=== PATIENT | female | born 1965 | race Caucasian/White ===

== ENCOUNTER 2016-08-19 07:54 | Inpatient (IN) | payer OTHER ==
[~2016-08-19] VITALS: Ht 160 cm; Wt 86.4 kg
[~2016-08-19 07:54] MED LIST: ALBU0.212 IH; ALBU8.5H IH; BECL8.7A5 IH; BUSP10TA23 PO; CALC-1174 PO; DICL50TA9 PO; MULT-1203 PO; OMEP20 PO; RINGERS SOLUTION,LACTATED 1,000 ML IV ONE; VIST50 PO
[2016-08-19] MEDS ORDERED: RINGERS SOLUTION,LACTATED 1,000 ML IV ONE (08:30)
[2016-08-19] MEDS ORDERED: FentaNYL CITRATE-PF 100 MCG/2 ML VIAL ED ONE (09:00)
[2016-08-19] MEDS ORDERED: MIDAZOLAM HCL 2 MG/2 ML VIAL IVP ONE ×2 (09:00)
[2016-08-19] MEDS ORDERED: KETAMINE HCL 50 MG/ML 10 ML VIAL IVP ONE (09:00)
[2016-08-19] MEDS ORDERED: FentaNYL CITRATE-PF 100 MCG/2 ML VIAL IVP ONE (09:00)
[2016-08-19] MEDS ORDERED: ACETAMINOPHEN 1000 MG/ISO-OSM 100 ML IV ONE ×2 (09:40→09:45)
[2016-08-19] MEDS ORDERED: CELECOXIB 200 MG CAPSULE ONE (09:40)
[2016-08-19] MEDS ORDERED: IPRATROPIUM BROMIDE 0.5 MG/2.5 ML NEB SOLUTION NEB PRN (09:45)
[2016-08-19] MEDS ORDERED: MEPERIDINE-PF 25 MG/ML SYRINGE IVP PRN ×2 (09:45)
[2016-08-19] MEDS ORDERED: FentaNYL CITRATE-PF 100 MCG/2 ML VIAL IVP PRN ×2 (09:45)
[2016-08-19] MEDS ORDERED: HYDROmorphone 2 MG/ML SYRINGE IVP PRN ×2 (09:45)
[2016-08-19] MEDS ORDERED: ALBUTEROL SULFATE 2.5 MG/0.5 ML NEB SOLUTION NEB PRN (09:45)
[2016-08-19] MEDS ORDERED: CELECOXIB 200 MG CAPSULE PO ONE (09:45)
[2016-08-19] MEDS ORDERED: ALBUTEROL SULFATE 2.5 MG/0.5 ML NEB SOLUTION NEB ONE (10:00)
[2016-08-19] MEDS ORDERED: IPRATROPIUM BROMIDE 0.5 MG/2.5 ML NEB SOLUTION NEB ONE (10:00)
[2016-08-19] MEDS ORDERED: BACITRACIN 50,000 UNITS/VIAL ONE (10:08)
[2016-08-19] MEDS ORDERED: SODIUM CL IRRIG SOLN BAG 3,000 ML IRRIG ONE (10:08)
[2016-08-19] MEDS ORDERED: TRANEXAMIC ACID 1,000 MG in DEXTROSE 5%-WATER 50 ML IV ONE (10:15)
[2016-08-19] MEDS ORDERED: DiphenhydrAMINE HCL 50 MG/ML VIAL IVP ONE (12:00)
[2016-08-19] MEDS ORDERED: PROPOFOL 1% 20 ML VIAL IVP ONE (12:00)
[2016-08-19] MEDS ORDERED: LIDOCAINE HCL/PF 2% 5 ML VIAL INJ ONE (12:00)
[2016-08-19] MEDS ORDERED: BUPIVACAINE LIPOSOME/PF 1.3%-13.3MG/ML SUSPENSION 20 ML VIAL INJ ONE (12:00)
[2016-08-19] MEDS ORDERED: ONDANSETRON HCL 4 MG/2 ML VIAL IVP ONE (12:00)
[2016-08-19] MEDS ORDERED: METOCLOPRAMIDE HCL 5 MG/ML 2 ML VIAL IVP ONE (12:00)
[2016-08-19] MEDS: SODIUM CHLORIDE 0.9% 1,000 ML IV SCH (12:10)
[2016-08-19] MEDS ORDERED: MAG HYDROX/AL HYDROX/SIMETH 30 ML SUSP UDCUP PO PRN (12:15)
[2016-08-19] MEDS ORDERED: DiphenhydrAMINE HCL 50 MG/ML VIAL IVP PRN (12:15)
[2016-08-19] MEDS ORDERED: BISACODYL 10 MG RECTAL RECTAL SUPPOSITORY PR PRN (12:15)
[2016-08-19] MEDS ORDERED: BENZOCAINE/MENTHOL LOZENGE [8 LOZENGES/PACKET] PO PRN (12:15)
[2016-08-19] MEDS ORDERED: ONDANSETRON HCL 4 MG/2 ML VIAL IVP PRN (12:15)
[2016-08-19 14:20] VITALS: BP 111/62
[2016-08-19] MEDS ORDERED: PNEUMOCOCCAL VACCINE POLYVALENT 0.5 ML VIAL [PPSV23] IM ONE (15:15)
[2016-08-19] MEDS: HYDROmorphone 2 MG/ML SYRINGE IVP PRN ×2 (15:28→20:06)
[2016-08-19] MEDS: CYCLOBENZAPRINE HCL 10 MG TABLET PO SCH ×2 (15:29→20:07)
[2016-08-19 15:53] VITALS: BP 105/58
[2016-08-19] MEDS: BusPIRone HCL 10 MG TABLET PO SCH ×2 (16:48→20:06)
[2016-08-19] MEDS: ALBUTEROL SULFATE HFA 90 MCG/PUFF 8 GM INHALER IH PRN ×2 (18:07→22:25)
[2016-08-19] MEDS: ACETAMINOPHEN 1000 MG/ISO-OSM 100 ML IV SCH (18:10)
[2016-08-19] MEDS: CeFAZolin 1 GM/DEXTROSE 50 ML IV SCH (18:13)
[2016-08-19 19:30] VITALS: BP 117/75
[2016-08-19] MEDS: OXYGEN THERAPY IH SCH ×3 (20:00)
[2016-08-19] MEDS: HydrOXYzine PAMOATE 50 MG CAPSULE PO SCH (20:06)
[2016-08-19] MEDS: DOCUSATE SODIUM 100 MG CAPSULE PO SCH (20:06)
[2016-08-19] MEDS: CELECOXIB 100 MG CAPSULE PO SCH (20:07)
[2016-08-19] MEDS: BECLOMETHASONE DIPR 80 MCG/PUFF 8.7 GM INHALER IH SCH (20:13)
[2016-08-19 23:55] VITALS: BP 104/59
[2016-08-20] MEDS: HYDROmorphone 2 MG/ML SYRINGE IVP PRN ×4 (01:11→16:56)
[2016-08-20] MEDS: ACETAMINOPHEN 1000 MG/ISO-OSM 100 ML IV SCH ×3 (01:22→17:54)
[2016-08-20] MEDS: CeFAZolin 1 GM/DEXTROSE 50 ML IV SCH (01:52)
[2016-08-20] MEDS: ALBUTEROL SULFATE HFA 90 MCG/PUFF 8 GM INHALER IH PRN ×2 (04:26→09:13)
[2016-08-20 04:31] VITALS: BP 110/74
[2016-08-20 06:01] LABS: BASOPHILS # (AUTO) 0.02 K/uL (0.00-0.20); BASOPHILS % (AUTO) 0.3 % (0.0-2.0); EOSINOPHILS # (AUTO) 0.11 K/uL (0.00-0.70); EOSINOPHILS % (AUTO) 1.23 % (1.0-6.0); HEMOGLOBIN 13.4 g/dL (12.0-16.0); LYMPHOCYTES # (AUTO) 2.2 K/uL (1.0-4.8); LYMPHOCYTES % (AUTO) 23.8 % (22.0-44.0); MEAN CORPUSCULAR HGB CONC 34.3 G/dL (31.0-37.0); MEAN CORPUSCULAR VOLUME 90 fL (80-100); MONOCYTES # (AUTO) 0.5 K/uL (0.1-1.0); MONOCYTES % (AUTO) 5.4 % (2.0-9.0); NEUTROPHILS # (AUTO) 6.4 K/uL (1.8-7.7); NEUTROPHILS % (AUTO) 69.3 % (40.0-70.0); PLATELET COUNT (AUTO) 250 K/uL (150-450); RED BLOOD CELL COUNT(AUTO) 4.32 MIL/uL (4.00-5.20); RED CELL DISTRIBUTION WIDTH 14.6 % (11.5-14.5); WHITE BLOOD COUNT (AUTO) 9.2 K/uL (4.5-11.0)
[2016-08-20 06:24] LABS: ANION GAP 6 mmol/L (8-16); CALCIUM, TOTAL 8.8 mg/dL (8.8-10.5); CARBON DIOXIDE 30 mmol/L (22-29); CHLORIDE 101 mmol/L (98-107); CREATININE 0.92 mg/dL (0.60-1.30); GLOMERULAR FILTR. RATE CALC > 60 mL/min (>60); POTASSIUM 4.1 mmol/L (3.5-5.1); SODIUM SERUM 137 mmol/L (136-145); UREA NITROGEN, BLOOD 11 mg/dL (7-18)
[2016-08-20 07:30] VITALS: BP 119/74
[2016-08-20] MEDS: BusPIRone HCL 10 MG TABLET PO SCH ×3 (08:49→20:38)
[2016-08-20] MEDS: BECLOMETHASONE DIPR 80 MCG/PUFF 8.7 GM INHALER IH SCH ×2 (08:49→21:42)
[2016-08-20] MEDS: OMEPRAZOLE 20 MG CAPSULE PO SCH (08:50)
[2016-08-20] MEDS: CYCLOBENZAPRINE HCL 10 MG TABLET PO SCH ×4 (08:50→20:34)
[2016-08-20] MEDS: CELECOXIB 100 MG CAPSULE PO SCH ×2 (08:50→20:34)
[2016-08-20] MEDS: DOCUSATE SODIUM 100 MG CAPSULE PO SCH ×2 (08:50→20:33)
[2016-08-20] MEDS: BISACODYL 5 MG EC TABLET PO SCH (09:06)
[2016-08-20] MEDS: CALCIUM OYSTER SHELL 250 MG-VIT D3 125 UNITS TABLET PO SCH (10:07)
[2016-08-20 11:30] VITALS: BP 120/74
[2016-08-20] MEDS: ALBUTEROL SULFATE 2.5 MG/0.5 ML NEB SOLUTION NEB SCH ×2 (13:48→20:07)
[2016-08-20] MEDS: IPRATROPIUM BROMIDE 0.5 MG/2.5 ML NEB SOLUTION NEB SCH ×2 (13:48→20:07)
[2016-08-20] MEDS: SODIUM CHLORIDE 0.9% 1,000 ML IV SCH ×2 (13:58→16:57)
[2016-08-20 15:45] VITALS: BP 110/61
[2016-08-20] MEDS ORDERED: RIVAROXABAN 10 MG TABLET PO SCH (17:30)
[2016-08-20 19:41] VITALS: BP 114/54
[2016-08-20] MEDS: OXYGEN THERAPY IH SCH ×3 (20:00)
[2016-08-20] MEDS: HydrOXYzine PAMOATE 50 MG CAPSULE PO SCH (20:33)
[2016-08-21 00:12] VITALS: BP 103/65
[2016-08-21] MEDS: HYDROmorphone 2 MG/ML SYRINGE IVP PRN ×2 (00:19→06:21)
[2016-08-21] MEDS: ALBUTEROL SULFATE 2.5 MG/0.5 ML NEB SOLUTION NEB SCH ×3 (02:00→13:36)
[2016-08-21] MEDS: IPRATROPIUM BROMIDE 0.5 MG/2.5 ML NEB SOLUTION NEB SCH ×3 (02:00→13:36)
[2016-08-21 04:56] VITALS: BP 105/72
[2016-08-21 06:33] LABS: BASOPHILS % (AUTO) 0.3 % (0.0-2.0); EOSINOPHILS % (AUTO) 1.9 % (1.0-6.0); HEMATOCRIT 38.2 % (36-46); HEMOGLOBIN 13.1 g/dL (12.0-16.0); LYMPHOCYTES # (AUTO) 1.9 K/uL (1.0-4.8); LYMPHOCYTES % (AUTO) 22.7 % (22.0-44.0); MEAN CORPUSCULAR HEMOGLOBIN 31.4 pg (26.0-34.0); MEAN CORPUSCULAR HGB CONC 34.2 G/dL (31.0-37.0); MEAN CORPUSCULAR VOLUME 92 fL (80-100); MONOCYTES # (AUTO) 0.6 K/uL (0.1-1.0); MONOCYTES % (AUTO) 7.2 % (2.0-9.0); NEUTROPHILS # (AUTO) 5.7 K/uL (1.8-7.7); NEUTROPHILS % (AUTO) 67.9 % (40.0-70.0); PLATELET COUNT (AUTO) 233 K/uL (150-450); RED BLOOD CELL COUNT(AUTO) 4.16 MIL/uL (4.00-5.20); RED CELL DISTRIBUTION WIDTH 14.2 % (11.5-14.5); WHITE BLOOD COUNT (AUTO) 8.4 K/uL (4.5-11.0)
[2016-08-21] MEDS: OXYGEN THERAPY IH SCH ×3 (08:00)
[2016-08-21 08:30] VITALS: BP 124/65
[2016-08-21] MEDS: CELECOXIB 100 MG CAPSULE PO SCH (08:47)
[2016-08-21] MEDS: BISACODYL 5 MG EC TABLET PO SCH (08:47)
[2016-08-21] MEDS: DOCUSATE SODIUM 100 MG CAPSULE PO SCH (08:47)
[2016-08-21] MEDS: BusPIRone HCL 10 MG TABLET PO SCH ×2 (08:47→15:39)
[2016-08-21] MEDS: OMEPRAZOLE 20 MG CAPSULE PO SCH (08:47)
[2016-08-21] MEDS: CALCIUM OYSTER SHELL 250 MG-VIT D3 125 UNITS TABLET PO SCH (08:48)
[2016-08-21] MEDS: OxyCODONE HCL/ACETAMINOPHEN 10-325 MG TABLET PO PRN ×2 (08:48→14:08)
[2016-08-21] MEDS: CYCLOBENZAPRINE HCL 10 MG TABLET PO SCH ×3 (08:49→15:39)
[2016-08-21] MEDS: BECLOMETHASONE DIPR 80 MCG/PUFF 8.7 GM INHALER IH SCH (08:50)
[2016-08-21 11:43] VITALS: BP 125/70
[2016-08-21 16:00] VITALS: BP 106/48
[2016-11-12] MEDS ORDERED: HYDR-3965 PO (10:40)
== END 2016-08-21 16:40 | DRG 301 ==
LOC: 4E 07:54
PROVIDERS: ADMIT Orthopaedic Surgery; ATTEND Orthopaedic Surgery
PROC: 0SRB0JZ Replacement of Left Hip Joint with Synthetic Substitute, Open Approach (ICD-10-PCS; principal; 2016-08-19 10:00)
DX: M16.12 Unilateral primary osteoarthritis, left hip (principal); I10 Essential (primary) hypertension; J45.909 Unspecified asthma, uncomplicated; M81.0 Age-related osteoporosis without current pathological fracture; K21.9 Gastro-esophageal reflux disease without esophagitis; I45.10 Unspecified right bundle-branch block; Z79.899 Other long term (current) drug therapy; Z98.890 Other specified postprocedural states; Z90.710 Acquired absence of both cervix and uterus
CPT/HCPCS: 72170; 73501; 87081; 88300; 90471; 93005; 94640; 97116; 97162; 97165; 97530; 97535; C9290; J0131; J0690; J1170; J1200; J2250; J2405; J2704; J2765; J3010; J3490; J3535; J7030; J7060; J7120

== ENCOUNTER 2016-11-13 06:09 | Day surgery (SDC) | payer OTHER ==
[~2016-11-13 06:09] MED LIST changes: +CYCLOPENTOLATE HCL 1% 2 ML OPHTHALMIC SOLUTION ONE; +FLURBIPROFEN SODIUM 0.03% 2.5 ML OPHTHALMIC SOLUTION ONE; +FentaNYL CITRATE-PF 100 MCG/2 ML VIAL IVP ONE; +HYDR-3965 PO; +MIDAZOLAM HCL 2 MG/2 ML VIAL IVP ONE; +PHENYLEPHRINE HCL 2.5% 2 ML OPHTHALMIC SOLUTION ONE; -RINGERS SOLUTION,LACTATED 1,000 ML IV ONE; +RINGERS SOLUTION,LACTATED 500 ML IV ONE; +TROPICAMIDE 1% 2 ML OPHTHALMIC SOLUTION ONE
[2016-11-13] MEDS ORDERED: RINGERS SOLUTION,LACTATED 500 ML IV ONE (06:30)
[2016-11-13] MEDS: TROPICAMIDE 1% 2 ML OPHTHALMIC SOLUTION OD SCH ×3 (07:00→07:16)
[2016-11-13] MEDS: PHENYLEPHRINE HCL 2.5% 2 ML OPHTHALMIC SOLUTION OD SCH ×3 (07:01→07:15)
[2016-11-13] MEDS: CYCLOPENTOLATE HCL 1% 2 ML OPHTHALMIC SOLUTION OD SCH ×3 (07:01→07:15)
[2016-11-13] MEDS: FLURBIPROFEN SODIUM 0.03% 2.5 ML OPHTHALMIC SOLUTION OD SCH ×3 (07:01→07:15)
[2016-11-13 07:07] LABS: GLUCOSE,POINT OF CARE 162 MG/DL (70-110)
[2016-11-13] MEDS ORDERED: HYALURONATE SODIUM 12 MG/ML 0.8 ML SYRINGE IO ONE (21:49)
[2016-11-13] MEDS ORDERED: LIDOCAINE HCL/PF 1% 2 ML VIAL IM ONE (21:49)
[2016-11-13] MEDS ORDERED: ACETYLCHOLINE CHLORIDE 1 EA INTRAOCULAR SOLUTION KIT IO ONE (21:49)
[2016-11-13] MEDS ORDERED: HYALURONATE SOD/CHONDROITIN SOD 0.5 ML VIAL IO ONE (21:49)
[2016-11-13] MEDS ORDERED: POVIDONE-IODINE 10% 15 ML SOLUTION UD TP ONE (21:49)
[2016-11-13] MEDS ORDERED: NEOMYCIN/POLYMYXIN B/DEXAMETH 3.5 GM OPHTHALMIC OINTMENT OD ONE (21:49)
[2016-11-13] MEDS ORDERED: TETRACAINE HCL VISCOUS 0.5% 0.6 ML OPHTHALMIC SOLUTION OD ONE (21:49)
[2016-11-13] MEDS ORDERED: TETRACAINE HCL 0.5% 2 ML OPHTHALMIC SOLUTION OD ONE (21:49)
== END 2016-11-13 10:00 | disposition home or self-care (01) ==
LOC: SURGERY 06:09
PROVIDERS: ATTEND Ophthalmology
DX: E11.36 Type 2 diabetes mellitus with diabetic cataract (principal); F32.9 Major depressive disorder, single episode, unspecified; J45.909 Unspecified asthma, uncomplicated
CPT/HCPCS: 66982; 82962; C1780; J2250; J3010; J3490 ×2; J7120; 99152; 99153